=== PATIENT | female | born 1990 | race Two or more races ===

== ENCOUNTER 2023-10-23 18:30 | Emergency (ER) | payer OTHER ==
[~2023-10-23] VITALS: Ht 167.6 cm; Wt 120.0 kg
[2023-10-23 18:58] VITALS: BP 125/76; PULSE 86; RESP 18; TEMP 98; O2SAT 98
[2023-10-23] MEDS: KETOROLAC TROMETH 60MG/2ML VIAL IM ONE (21:20)
== END 2023-10-23 23:20 | disposition home or self-care (01) ==
LOC: ER 18:36
DX: S82.891A Other fracture of right lower leg, initial encounter for closed fracture (principal); S93.401A Sprain of unspecified ligament of right ankle, initial encounter; V49.60XA Unspecified car occupant injured in collision with unspecified motor vehicles in traffic accident, initial encounter; Y93.89 Activity, other specified; Y92.89 Other specified places as the place of occurrence of the external cause; Y99.8 Other external cause status
CPT/HCPCS: 29515; 73590; 73610; 96372; 99284; J1885